=== PATIENT | male | born 1980 | race African-American/Black ===

== ENCOUNTER 2022-09-16 13:38 | Emergency (ER) | payer BC ==
[2022-09-16 14:13] LABS: ANION GAP 6.2 meq/L (7-15); CHLORIDE,CL 103 mmol/L (98-107); SODIUM,NA 141 mmol/L (136-145)
[2022-09-16 14:16] LABS: ESTIMATED GFR 91 mL/min (>=60)
== END 2022-09-16 15:30 | disposition home or self-care (01) ==
LOC: LL.ED 13:38
DX: R10.84 Generalized abdominal pain (principal)
CPT/HCPCS: 36415; 74018; 80048; 85025; 99284

== ENCOUNTER 2022-09-22 16:22 | Emergency (ER) | payer BC ==
[2022-09-22] MEDS ORDERED: Sodium Chloride 0.9% 10 ML Syringe FLUSH PRN (16:48)
[2022-09-22] MEDS ORDERED: GI Cocktail Oral Solution 30 ML PO ONE (17:31)
[2022-09-22 17:33] LABS: ANION GAP 9.5 meq/L (7-15)
[2022-09-22] MEDS ORDERED: Iopamidol 612 MG/ML 100 ML Bottle IVPUSH STA (18:37)
[2022-09-22] MEDS ORDERED: Ketorolac 30 MG/ML SDV IVPUSH ONE (20:39)
[2022-09-22] MEDS ORDERED: Colchicine 0.6 MG Tab PO ONE (20:39)
[2022-09-22 22:40] LABS: CORONAVIRUS COVID-19 NAA NEGATIVE (NEGATIVE); RESPIRATORY SYNCYTIAL VIR NAA NEGATIVE (NEGATIVE)
== END 2022-09-22 23:15 ==
LOC: LL.ED 16:22
DX: I30.9 Acute pericarditis, unspecified (principal); Z20.822 Contact with and (suspected) exposure to COVID-19
CPT/HCPCS: 0241U; 36415; 71046; 71260; 80053; 83605; 83735; 83880; 84484; 85025; 85379; 85610; 85652; 86140; 93005; 93010; 96374; 99285; 99285-25; A9270-GY; J1885; Q9967